=== PATIENT | female | born 2000 | race American Indian/Alaskan Native ===

== ENCOUNTER 2019-07-13 08:44 | Emergency (ER) | payer SELFPAY ==
[2019-07-13 08:51] VITALS: BP 119/83
--- NOTE | 2019-07-13 09:25 | Emergency Department Report ---
Chief Complaint: Extremity Injury, Upper Stated Complaint: OLIVE/CLEARANCE FOR WORK Time Seen by Provider: 07/13/19 09:04 - HPI History of Present Illness: 18-year-old -[place] female presents to the emergency room stating that she had chest pain and shortness of breath yesterday and was sent home from work. Patient reports she cannot return to work without medical clearance. Patient denies any fever chills no nausea no vomiting no cough. - Exam Vital Signs: Vital Signs 07/13/19 08:49 Temperature 98.2 F Pulse Rate 94 H Respiratory 18 Rate Blood Pressure 119/83 O2 Sat by Pulse 100 Oximetry Physical Exam: Gen: alert oriented NAD Cardic: regular rate and rhythm no murmurs appreciated Resp: Clear to auscultation bilateral no wheezing no rales or rhonchi. Abdomen: Soft nontender nondistended normal bowel sounds. MSE screening note: Focused history and physical exam performed. Due to findings the following was ordered: 18-year-old -[place] female presents to the emergency room stating that she had chest pain and shortness of breath yesterday and was sent home from work. Patient reports she cannot return to work without medical clearance. Patient denies any fever chills no nausea no vomiting no cough. Discussed with patient she can follow-up at a primary care urgent care as we do not give medical clearance at this is the emergency room where here to take care acutely healed patients. With care that needs to be done for life-threatening. ED Disposition for MSE Disposition: Z-07 MED SCREENING EXAM-LEFT Is pt being admited?: No Does the pt Need Aspirin: No Condition: Stable Additional Instructions: Please follow-up with a primary care provider or urgent care for medical clearance. Referrals: [facility] [Outside] - 3-5 Days [facility] [Outside] - 3-5 Days
== END 2019-07-13 09:38 | disposition left against medical advice (07) ==
LOC: ED 08:44
DX: R07.9 Chest pain, unspecified (principal); R06.02 Shortness of breath
CPT/HCPCS: 99281